=== PATIENT | male | born 1965 | race Hispanic/Latino ===

== ENCOUNTER 2022-01-28 09:05 | Outpatient (CLI) | payer BC ==
--- NOTE | 2022-01-28 10:04 | Cat Scan Report ---
CT abdomen pelvis wo/w con INDICATION: N20.1 CALCULUS OF URETER OMNI 300 100 ML. COMPARISON: None TECHNIQUE: CT urogram of the abdomen and pelvis. All CT scans at this location are performed using CT dose reduction for ALARA by means of automated exposure control. FINDINGS: CT ABDOMEN and PELVIS: Lung Bases: No significant abnormality. Liver: No significant abnormality. Biliary: Gallbladder is surgically absent. Spleen: No significant abnormality. Pancreas: No significant abnormality. Adrenals: No significant abnormality. Kidneys: There is a 5 mm stone in the proximal left ureter with mild left hydronephrosis. Several roseline ateral intrarenal stones are also seen. The largest stone in the right kidney measures about 1.3 cm. The largest stone in the left kidney measures about 7 mm. There are also several bilateral simple paradise al cysts. Several small bilateral stones are seen in the bladder. No hydronephrosis. No suspicious re nal mass. On delayed imaging, there is no filling defects in the opacified portions of the collecting system, ureters, or bladder. Bladder: No mass. Lymphatics: No lymphadenopathy. Vasculature: No significant abnormality. Bowel: Nonobstructive bowel. Sigmoid diverticulosis without mesocolonic fat stranding. No free air. N o free fluid. Pelvis: Prostate is moderately enlarged. Osseous Structures: No aggressive osseous lesion. Additional Findings: None IMPRESSION: 1. Mild left hydronephrosis due to 5 mm proximal left ureteral stone. 2. Several bilateral intrarenal stones as well as bladder stones are also present. 3. Multiple bilateral simple renal cysts. No solid renal mass. 4. Moderately enlarged prostate. Signer Name: Jose Patel MD Signed: 01/28/2022 9:59 AM Workstation Name: [email or web address]
== END 2022-01-28 09:06 | disposition home or self-care (01) ==
LOC: CT 09:05
PROVIDERS: ATTEND Urology
DX: N28.1 Cyst of kidney, acquired (principal); N13.30 Unspecified hydronephrosis; N40.0 Benign prostatic hyperplasia without lower urinary tract symptoms; N20.1 Calculus of ureter
CPT/HCPCS: 74178; Q9967

== ENCOUNTER 2022-02-15 06:01 | Observation (INO) | payer BC ==
[~2022-02-15 06:01] MED LIST: ACETAMINOPHEN 500 MG TAB PO SCH; LACTATED RINGERS 1,000 ML IV SCH; MIDAZOLAM 2 MG/2 ML INJ IV NR
[2022-02-15] MEDS ORDERED: LIDOCAINE MPF (2%) 20 MG/1 ML VIAL 5 ML ONE (07:18)
[2022-02-15] MEDS ORDERED: fentaNYL 100 MCG/2 ML INJ ONE ×2 (07:19→08:57)
[2022-02-15] MEDS ORDERED: propofoL 200 MG/20 ML VIAL IV ONE (07:19)
[2022-02-15] MEDS ORDERED: HYDROmorphone 1 MG/1 ML INJ IV PRN (07:44)
[2022-02-15] MEDS ORDERED: HYDROcodone/ACETAMINOPHEN 5-325 MG TAB PO PRN (07:44)
--- NOTE | 2022-02-15 07:44 | Anesthesia Consultation ---
Anesthesia Consult and Med Hx Date of service: 02/15/22 - Airway Anesthetic Teeth Evaluation: Good ROM Head & Neck: Adequate Mental/Hyoid Distance: Adequate Mallampati Class: Class II Intubation Access Assessment: Probably Good - Pre-Operative Health Status ASA Pre-Surgery Classification: ASA2 Proposed Anesthetic Plan: General - Pulmonary Hx Smoking: No Hx Respiratory Symptoms: No - Cardiovascular System Hx Hypertension: Yes Hx Heart Attack/AMI: No Hx Percutaneous Transluminal Coronary Angioplasty (PTCA): No - Central Nervous System CVA: No - Endocrine Hx Renal Disease: No Hx Liver Disease: No Hx Insulin Dependent Diabetes: No Hx Non-Insulin Dependent Diabetes: No Hx Thyroid Disease: No - Other Systems Hx Obesity: Yes (BMI 31) - Additional Comments Anesthesia Medical History Comments: No hx anesthetic complications.
--- NOTE | 2022-02-15 07:44 | Anesthesia Day of Surgery ---
Anesthesia Day of Surgery - Day of Surgery Patient Examined: Yes Patient H&P Reviewed: Yes Patient is NPO: Yes
[2022-02-15] MEDS ORDERED: ONDANSETRON 4 MG/2 ML INJ ONE (08:44)
[2022-02-15] MEDS ORDERED: dexAMETHasone 20 MG/5 ML VIAL ONE (08:44)
[2022-02-15] MEDS ORDERED: SODIUM CHLORIDE 0.9% IRRIG SOLN 3000 ML IR ONE (09:03)
[2022-02-15] MEDS ORDERED: WATER FOR IRRIG STERILE 2000 ML IR ONE (09:03)
[2022-02-15] MEDS ORDERED: IOHEXOL IV ONE (09:18)
[2022-02-15] MEDS ORDERED: SODIUM CHLORIDE IV ONE (09:18)
--- NOTE | 2022-02-15 10:31 | Post Operative Note ---
Date of procedure: 02/15/22 Pre-op diagnosis: aur stones Post-op diagnosis: same Findings: trilobar stones Procedure: cysto turp laser Anesthesia: GETA Surgeon: FE JOHNSTON Estimated blood loss: 50-100ml Pathology: list (prostate stones) Specimen disposition: to lab Condition: stable Disposition: PACU
--- NOTE | 2022-02-15 10:36 | Operative Report ---
DATE OF SURGERY: 02/15/2022 PREOPERATIVE DIAGNOSES: Recurrent urinary retention, large middle lobe, bladder stones, possible ureteral stone, renal stones. POSTOPERATIVE DIAGNOSES: Recurrent urinary retention, large middle lobe, bladder stones, possible ureteral stone, renal stones. PROCEDURES: Cystoscopy, laser of the large bladder stones and a smaller bladder stone, which might have been the ureteral stone, left retrograde, transurethral resection of prostate, mostly middle lobe. SURGEON: Aakash Mensah MD ANESTHESIA: General. FINDINGS: This is a gentleman who had left flank pain, had a ureteral stone and then cystoscopy in the office showed multiple stones in the bladder. He had no more flank pain. He tells me before he would not want a stent unless it is absolutely necessary. He had no pain at all. He had recurrent retention, catheter was placed. He now presents for cystoscopy. DESCRIPTION OF PROCEDURE: The patient was brought to the operating room and placed on the operating table. Following the induction of anesthesia, placed in lithotomy position, prepped and draped in usual sterile fashion. Cystourethroscopy showed prominent middle lobe. There was a large stone tucked in behind the middle lobe, which was lasered into multiple small fragments. There was a smaller, approximately 5 mm stone in the bladder. The orifices were little patulous on both sides. Retrograde showed J-hooking with no persistent filling defects and tremendous excellent drainage from the left side. We decided not to place a stent or do a ureteroscopy. A resectoscope, the Olympus was placed and the middle lobe was resected down to capsular fibers. Trigone was intact. We opened up the channel. We did not want to do a complete TURP. He is a young, I tried to hopefully preserve some ejaculation. The chips and stones were evacuated out. There were no residual stones in the bladder. The patient tolerated the procedure well, brought to recovery room with 3-way catheter. Family notified. TID: [id number] RECEIPT: [id number] FABRIZIO/GELA
[2022-02-15] MEDS ORDERED: ACETAMINOPHEN 325 MG TAB PO PRN (11:00)
[2022-02-15] MEDS ORDERED: ONDANSETRON 4 MG/2 ML INJ IV NR (11:00)
[2022-02-15] MEDS ORDERED: D5W/0.45% NACL/KCL 20 MEQ 20 MEQ/1,000 ML BAG IV SCH (11:00)
[2022-02-15] MEDS ORDERED: oxyCODONE /ACETAMINOPHEN 5-325MG TAB PO PRN (11:00)
--- NOTE | 2022-02-15 12:36 | Post Anesthesia Evaluation ---
- Post Anesthesia Evaluation Patient Participated: Yes Airway Patent: Yes Stable Respiratory Function: Yes Nausea/Vomiting: No Temp > 96.8F: Yes Pain Manageable: Yes Adequeate Hydration: Yes Anesthesia Complications: No
--- NOTE | 2022-02-15 13:31 | Fluoroscopy Report ---
INTRAOPERATIVE FLUOROSCOPY: RETROGRADE UROGRAPHY INDICATION / CLINICAL INFORMATION: BLADDER STONE/LT URETERAL STONE. TECHNIQUE: Intraoperative spot images were obtained during the procedure. FINDINGS: Images show retrograde urography. See operative/procedure note by performing physician for full details. Fluoroscopy Time: 38 seconds. Fluoroscopy Images: 7. Signer Name: Jose Patel MD Signed: 02/15/2022 1:27 PM Workstation Name: [employer]
[2022-02-15] MEDS: ceFAZolin/NS 1 GM/50 ML 1 GM/50 ML BAG IV SCH ×2 (21:52→23:12)
[2022-02-15] MEDS ORDERED: ZOLPIDEM 5 MG TAB PO PRN (22:00)
[2022-02-15] MEDS: SODIUM CHLORIDE 0.9% IRRIG SOLN 2000 ML IR SCH (23:50)
[2022-02-16] MEDS: SODIUM CHLORIDE 0.9% IRRIG SOLN 2000 ML IR SCH (03:58)
[2022-02-16] MEDS: ceFAZolin/NS 1 GM/50 ML 1 GM/50 ML BAG IV SCH (06:04)
[2022-02-16 06:30] VITALS: BP 118/72
--- NOTE | 2022-02-16 08:52 | Progress Note ---
Assessment and Plan looks well home today instructions given Subjective Date of service: 02/16/22 Principal diagnosis: fontaine retention stones Objective - Constitutional Vitals: Vital Signs - 12hr 02/15/22 02/15/22 02/16/22 21:24 23:51 06:18 Temperature 98.1 F 97.9 F Pulse Rate 77 76 Respiratory 18 18 Rate Blood Pressure 123/70 118/72 O2 Sat by Pulse 98 92 97 Oximetry General appearance: Present: no acute distress - Neck Neck: supple - Respiratory Respiratory effort: normal Extremities: no ischemia - Gastrointestinal General gastrointestinal: Present: soft, non-tender Medications & Allergies - Medications Allergies/Adverse Reactions: Allergies No Known Allergies Allergy (Verified 02/08/22 11:49) Home Medications: Home Medications Medication Instructions Recorded Confirmed Last Taken Type Dutasteride 0.5 mg PO DAILY 02/05/22 02/05/22 Unknown History Tamsulosin [Flomax] 0.4 mg PO QDAY 02/05/22 02/05/22 Unknown History lisinopriL [Lisinopril] 20 mg PO DAILY 02/05/22 02/05/22 Unknown History Active Medications: Generic Name Dose Route Start Last Admin Trade Name Freq PRN Reason Stop Dose Admin Acetaminophen 1,000 mg 02/15/22 06:00 02/15/22 07:30 Acetaminophen 500 Mg Tab PO 1,000 mg PREOP FORTINO Administration Acetaminophen 650 mg 02/15/22 11:00 Acetaminophen 325 Mg Tab PO Q4H PRN Pain, Mild (1-3)/Fever > 100.5 Potassium Chloride/Dextrose/Sod Cl 20 meq in 1,000 mls @ 125 mls/hr 02/15/22 11:00 02/15/22 23:14 D5w/0.45% Nacl/Kcl 20 Meq IV 125 mls/hr DIRECT FORTINO Administration Cefazolin Sodium 1 gm in 50 mls @ 100 mls/hr 02/15/22 12:00 02/16/22 06:04 Ancef/Ns 1 Gm/50 Ml IV 02/16/22 12:29 100 mls/hr Q8H FORTINO Administration Protocol Oxycodone/Acetaminophen 2 tab 02/15/22 11:00 Oxycodone /Acetaminophen 5-325mg Tab PO Q6H PRN Pain, Moderate (4-6) Sodium Chloride 2,000 ml 02/15/22 11:00 02/16/22 03:58 Sodium Chloride 0.9% Irrig Soln 2000 Ml IR 2,000 ml DIRECT FORTINO Administration Zolpidem Tartrate 5 mg 02/15/22 22:00 Zolpidem 5 Mg Tab PO QHS PRN Sleep
--- NOTE | 2022-02-16 08:53 | Discharge Summary ---
Short Stay Discharge Plan Activity: other (no straining ) Weight Bearing Status: Full Weight Bearing Diet: low fat, low cholesterol, low salt Special Instructions: other (inc fluids ) Durable Medical Equipment Needed Upon Discharge: other (teach gardiner care ) Follow up with: SILVIA WATTS MD [Primary Care Provider] - 7 Days FE JOHNSTON MD [Staff Physician] - 02/18/22
== END 2022-02-16 11:30 | disposition home or self-care (01) ==
LOC: OR 06:01 → 3A 10:32
PROVIDERS: ADMIT Urology; ATTEND Urology
DX: N40.1 Benign prostatic hyperplasia with lower urinary tract symptoms (principal); N20.2 Calculus of kidney with calculus of ureter; R33.8 Other retention of urine; Z79.899 Other long term (current) drug therapy; Z98.890 Other specified postprocedural states
CPT/HCPCS: 52353; 52601; 74420; 96365; 96366; C1758; C1769; G0378; J0690; J1100; J2250; J2405; J2704; J3010; J3480; J3490; J7120; Q9967